=== PATIENT | female | born 1965 ===

== ENCOUNTER 2021-09-13 06:13 | Day surgery (SDC) | payer OTHER ==
[~2021-09-13 06:13] MED LIST: ATACAND16 MG PO; FOSAMAX70 MG PO; LEVOTHYROXINE25 MCG PO
== END 2021-09-13 12:00 | disposition home or self-care (01) ==
LOC: CIR.AMB 06:13
PROVIDERS: ATTEND Orthopaedic Surgery
DX: M75.121 Complete rotator cuff tear or rupture of right shoulder, not specified as traumatic (principal); M75.21 Bicipital tendinitis, right shoulder; I10 Essential (primary) hypertension; E03.9 Hypothyroidism, unspecified; K21.9 Gastro-esophageal reflux disease without esophagitis; Z20.822 Contact with and (suspected) exposure to COVID-19